=== PATIENT | male | born 1980 | race Caucasian/White ===

== ENCOUNTER 2023-10-29 17:04 | Emergency (ER) | payer BC ==
[~2023-10-29] VITALS: Ht 170.2 cm; Wt 104.3 kg
[2023-10-29 17:23] VITALS: BP 136/81; PULSE 64; RESP 20; TEMP 98.4; O2SAT 96
[2023-10-29] MEDS ORDERED: ACET-10509 PO (19:24)
[2023-10-29 19:56] VITALS: BP 136/81; PULSE 64; RESP 20; TEMP 98.4; O2SAT 96
== END 2023-10-29 20:19 | disposition home or self-care (01) ==
LOC: MED 17:04
DX: S02.2XXA Fracture of nasal bones, initial encounter for closed fracture (principal); S02.85XA Fracture of orbit, unspecified, initial encounter for closed fracture; Z79.899 Other long term (current) drug therapy; W11.XXXA Fall on and from ladder, initial encounter; Y93.89 Activity, other specified; Y92.89 Other specified places as the place of occurrence of the external cause; Y99.8 Other external cause status
CPT/HCPCS: 70486; 99284